=== PATIENT | female | born 1995 | race Caucasian/White ===

== ENCOUNTER 2022-02-13 10:57 | Emergency (ER) | payer OTHER ==
--- OUTSIDE RECORDS SUMMARY | 2022-02-13 11:01 | XMS REPORT | Continuity of Care Document ---
:1995 Author Organization [facility] t Address [address] [place] [address] Care Team Providers Name Role Phone PCP, PATIENT DOES NOT HAVE A Primary Care Physician UnavailCARLA Trotter Attending Clinician Unavailable La Nena Spencer RN Attending Clinician Unavailable Beto Ortiz MD Attending Clinician BETO ORTIZ Attending Clinician Unavailable Doctor Unassigned, [place] Attending Clinician Unavailable UNKNOWN, ATTENDING Attending Clinician Unavailable ROMERO GE Attending Clinician Unavailable Romero Ge MD Attending Clinician Lori Floyd Attending Clinician Carla Tripp PA-C Attending Clinician Payers Payer Name Policy Type Policy Number Effective Date Expiration Date [facility] [id number] 2017 PPO 00:00:00 Problems Condition Condition Condition Status Onset Resolution Last Treating Co mments Source Name Details Category Date Date Treatment Clinician Date High-risk High-risk Disease Active 2021-03 Uni vers 1-21 ity of in first in first 00:00: [place] trimester trimester 00 Medi bibi Branch Nausea and Nausea and Disease Active 2021-03 U nivers vomiting vomiting 1-21 ity of during during 00:00: [place] 00 Medi bibi prior to prior to Branch 22 weeks 22 weeks gestation gestation Chlamydia Chlamydia Disease Active 2017-03 Uni vers infection infection 0-18 ity of affecting affecting 00:00: Cassidy henry 00 Medi bibi in first in first Branch trimester trimester Allergies, Adverse Reactions, Alerts Allergy Allergy Status Severity Reaction(s) Onset Inactive Treating Comm ents Source Name Type Date Date Clinician NO KNOWN Drug Active Univers ALLERGIE Class ity of S [facility] Social History Social Habit Start Date Stop Date Quantity Comments Source ASSERTION 2021-12-21 University 00:00:00 [place] [facility] [place] History SDOH University o f Alcohol Frequency [place] [facility] ed[facility] History SDOH University o f Alcohol Std [place] [facility] Drinks Branch History SDNE University o f Alcohol Binge [place] [facility] al [place] History of Passive smoker University of tobacco use [facility] Exposure to 2022-01-15 2022-01-25 Not sure University SARS-CoV-2 00:00:00 11:03:00 [facility] (event) [place] Alcohol Comment 2022-01-25 2022-01-25 quit when found Univ ersity of 00:00:00 00:00:00 out was [facility] dical [place] Tobacco use and 2022-01-25 2022-01-25 Smokeless tobacco Un iversity of exposure 00:00:00 00:00:00 non-user [facility] Alcohol intake 2022-01-25 2022-01-25 Ex-drinker [facility] 00:00:00 00:00:00 (finding) [facility] Sex [birth year] Universit y of 00:00:00 00:00:00 [facility] Smoking Status Start Date Stop Date Source Never smoked tobacco [facility] Medications Ordered Filled Start Stop Current Ordering Indication Dosage Frequency Signature Comments Components Source Medication Medication Date Date Medication? Clinician (SIG) Name Name metroNIDAZO 2021-03- Yes [id number] 500mg Take 1 Univers LE (FLAGYL) 03-28 tablet by it y of 500 mg 00:00: 05:59 mouth in [place] tablet 00 :00 the Medical morning Branch and 1 tablet in the evening. Do all this for 7 days. metroNIDAZO 2021-03- Yes [id number] 500mg Take 1 Univers LE (FLAGYL) 03-28 tablet by it y of 500 mg 00:00: 05:59 mouth in [place] tablet 00 :00 the Medical morning Branch and 1 tablet in the evening. Do all this for 7 days. metroNIDAZO 2021-03- Yes [id number] 500mg Take 1 Univers LE (FLAGYL) 03-28 tablet by it y of 500 mg 00:00: 05:59 mouth in [place] tablet 00 :00 the Medical morning Branch and 1 tablet in the evening. Do all this for 7 days. levonorgest 2021-03- No 1{devic 1 Device Univers reL 03-27 e} by ity of (MIRENA) 20 13:37: 00:00 Intrauteri [place] mcg/24 47 :00 ne route Medical hours (5 once now. Branch yrs) 52 mg IUD levonorgest 2021-03- No 1{devic 1 Device Univers reL 03-27 e} by ity of (MIRENA) 20 13:37: 00:00 Intrauteri [place] mcg/24 47 :00 ne route Medical hours (5 once now. Branch yrs) 52 mg IUD PNV 2021-03 Yes Take by Univers no.95/rashel -21 mouth. ity of us 11:37: [place] fum/folic 59 Medical ac Branch ( ORAL) PNV 2021-03 Yes Take by Univers no.95/rashel 1-21 mouth. ity of 11:37: [place] fum/folic 59 Medical ac Branch ( ORAL) PNV 2021-03 Yes Take by Univers no.95/rashel 1-21 mouth. ity of us 11:37: [place] fum/folic 59 Medical ac Branch ( ORAL) PNV 2021-03 Yes Take by Univers no.95/rashel 1-21 mouth. ity of us 11:37: [place] fum/folic 59 Medical ac Branch ( ORAL) PNV 2021-03 Yes Take by Univers no.95/rashel 1-21 mouth. ity of us 11:37: [place] fum/folic 59 Medical ac Branch ( ORAL) PNV 2021-03 Yes Take by Univers no.95/rashel 1-21 mouth. ity of us 11:37: [place] fum/folic 59 Medical ac Branch ( ORAL) metoclopram 2021-03 Yes [id number] 10mg Take 1 Univers clint HCl 10 1-21 tablet by ity of mg tablet 00:00: mouth [place] 00 every 6 Medical (six) Branch hours as needed for Nausea and Vomiting (N/V). pyridoxine, 2021-03 Yes [id number] 25mg Take 1 Univers VITAMIN 1-21 tablet by ity of B-6, 00:00: mouth [place] (VITAMIN 00 every 6 Medical B-6) 25 mg (six) Branch tablet hours as needed for Nausea and Vomiting (N/V). doxylamine 2021-03 Yes [id number] 25mg Take 1 U nivers (UNISOM, 1-21 tablet by ity of DOXYLAMINE, [place] 25 mg 00 bedtime as Medica l tablet needed for Branch Nausea and Vomiting (N/V). metoclopram 2021-03 Yes [id number] 10mg Take 1 Univers clint HCl 10 1-21 tablet by ity of mg tablet 00:00: mouth [place] 00 every 6 Medical (six) Branch hours as needed for Nausea and Vomiting (N/V). pyridoxine, 2021-03 Yes [id number] 25mg Take 1 Univers VITAMIN 1-21 tablet by ity of B-6, 00:00: mouth [place] (VITAMIN 00 every 6 Medical B-6) 25 mg (six) Branch tablet hours as needed for Nausea and Vomiting (N/V). doxylamine 2021-03 Yes [id number] 25mg Take 1 U nivers (UNISOM, 1-21 tablet by ity of DOXYLAMINE, [place] 25 mg 00 bedtime as Medica l tablet needed for Branch Nausea and Vomiting (N/V). metoclopram 2021-03 Yes [id number] 10mg Take 1 Univers clint HCl 10 1-21 tablet by ity of mg tablet 00:00: mouth [place] 00 every 6 Medical (six) Branch hours as needed for Nausea and Vomiting (N/V). pyridoxine, 2021-03 Yes [id number] 25mg Take 1 Univers VITAMIN 1-21 tablet by ity of B-6, 00:00: mouth [place] (VITAMIN 00 every 6 Medical B-6) 25 mg (six) Branch tablet hours as needed for Nausea and Vomiting (N/V). doxylamine 2021-03 Yes [id number] 25mg Take 1 U nivers (UNISOM, 1-21 tablet by ity of DOXYLAMINE, [place] 25 mg 00 bedtime as Medica l tablet needed for Branch Nausea and Vomiting (N/V). metoclopram 2021-03 Yes [id number] 10mg Take 1 Univers clint HCl 10 1-21 tablet by ity of mg tablet 00:00: mouth [place] 00 every 6 Medical (six) Branch hours as needed for Nausea and Vomiting (N/V). pyridoxine, 2021-03 Yes [id number] 25mg Take 1 Univers VITAMIN 1-21 tablet by ity of B-6, 00:00: mouth [place] (VITAMIN 00 every 6 Medical B-6) 25 mg (six) Branch tablet hours as needed for Nausea and Vomiting (N/V). doxylamine 2021-03 Yes [id number] 25mg Take 1 U nivers (UNISOM, 1-21 tablet by ity of DOXYLAMINE, [place] 25 mg 00 bedtime as Medica l tablet needed for Branch Nausea and Vomiting (N/V). metoclopram 2021-03 Yes [id number] 10mg Take 1 Univers clint HCl 10 1-21 tablet by ity of mg tablet 00:00: mouth [place] 00 every 6 Medical (six) Branch hours as needed for Nausea and Vomiting (N/V). pyridoxine, 2021-03 Yes [id number] 25mg Take 1 Univers VITAMIN 1-21 tablet by ity of B-6, 00:00: mouth [place] (VITAMIN 00 every 6 Medical B-6) 25 mg (six) Branch tablet hours as needed for Nausea and Vomiting (N/V). doxylamine 2021-03 Yes [id number] 25mg Take 1 U nivers (UNISOM, 1-21 tablet by ity of DOXYLAMINE, [place] 25 mg 00 bedtime as Medica l tablet needed for Branch Nausea and Vomiting (N/V). metoclopram 2021-03 Yes [id number] 10mg Take 1 Univers clint HCl 10 1-21 tablet by ity of mg tablet 00:00: mouth [place] 00 every 6 Medical (six) Branch hours as needed for Nausea and Vomiting (N/V). pyridoxine, 2021-03 Yes [id number] 25mg Take 1 Univers VITAMIN 1-21 tablet by ity of B-6, 00:00: mouth [place] (VITAMIN 00 every 6 Medical B-6) 25 mg (six) Branch tablet hours as needed for Nausea and Vomiting (N/V). doxylamine 2021-03 Yes [id number] 25mg Take 1 U nivers (UNISOM, 1-21 tablet by ity of DOXYLAMINE, [place] 25 mg 00 bedtime as Medica l tablet needed for Branch Nausea and Vomiting (N/V). ondansetron Yes [id number] 4mg Take 1 Univers 4 mg 5-16 tablet by ity of disintegrat 00:00: mouth [place] ing tablet 00 every 8 Medica l (eight) Branch hours as needed for Nausea and Vomiting (N/V). bromphenira Yes [id number] 5mL Take 5 mL Univers mine-pseudo 5-16 by mouth 4 it y of ephedrine-D 00:00: (four[place] (BROMFED 00 times Medical DM) 2-30-10 daily as Bran ch mg/5 mL needed for syrup Congestion /Allergies . ondansetron 2021- No [id number] 4mg Take 1 Univers 4 mg 5-16 11-21 tablet by ity of disintegrat 00:00: 00:00 [place] tablet 00 :00 every 8 Medica l (eight) Branch hours as needed for Nausea and Vomiting (N/V). bromphenira 2021- No [id number] 5mL Take 5 mL Univers mine-pseudo 5-16 11-21 by mouth 4 i ty of ephedrine-D 00:00: 00:00 (four) [place] M (BROMFED 00 :00 times Medical DM) 2-30-10 daily as Bran ch mg/5 mL needed for syrup Congestion /Allergies . ondansetron 2021- No [id number] 4mg Take 1 Univers 4 mg 5-16 11-21 tablet by ity of disintegrat 00:00: 00:00 [place] tablet 00 :00 every 8 Medica l (eight) Branch hours as needed for Nausea and Vomiting (N/V). bromphenira 2021- No [id number] 5mL Take 5 mL Univers mine-pseudo 5-16 -21 by mouth 4 i ty of ephedrine-D 00:00: 00:00 (four) [place] M (BROMFED 00 :00 times Medical DM) 2-30-10 daily as Bran ch mg/5 mL needed for syrup Congestion /Allergies . metroNIDAZO Yes [id number] 500mg Take 1 Univers LE 500 mg 1-16 tablet by ity o f tablet 00:00: mouth [place] 00 every 12 Medical (twelve) Branch hours. metroNIDAZO Yes [id number] 500mg Take 1 Univers LE 500 mg 1-16 tablet by ity o f tablet 00:00: mouth [place] 00 every 12 Medical (twelve) Branch hours. metroNIDAZO 2021- No [id number] 500mg Take 1 Univers LE 500 mg 1-16 -21 tablet by ity of tablet 00:00: 00:00 mouth [place] 00 :00 every 12 Medical (twelve) Branch hours. metroNIDAZO 2021- No [id number] 500mg Take 1 Univers LE 500 mg 1-16 -21 tablet by ity of tablet 00:00: 00:00 mouth [place] 00 :00 every 12 Medical (twelve) Branch hours. fluconazole 2021- No [id number] 200mg Take 1 Univers 200 mg 1-16 -18 tablet by ity of tablet 00:00: 05:59 mouth [place] 00 :00 daily for Medical 1 day. Branch cephALEXin 0 Yes [id number] 500mg Take 1 Univers 500 mg 1-13 capsule by ity of capsule 00:00: mouth 2 [place] 00 (two) Medical times Branch daily. cephALEXin 2021-0 Yes [id number] 500mg Take 1 Univers 500 mg 1-13 capsule by ity of capsule 00:00: mouth 2 [place] 00 (two) Medical times Branch daily. cephALEXin 2021-0 Yes [id number] 500mg Take 1 Univers 500 mg 1-13 capsule by ity of capsule 00:00: mouth 2 [place] 00 (two) Medical times Branch daily. cephALEXin 2021-0 2021- No [id number] 500mg Take 1 Univers 500 mg 1-13 11-21 capsule by ity of capsule 00:00: 00:00 mouth 2 [place] 00 :00 (two) Medical times Branch daily. cephALEXin 2021- No [id number] 500mg Take 1 Univers 500 mg 03-19 capsule by ity of capsule 00:00: 00:00 mouth 2 [place] 00 :00 (two) Medical times Branch daily. levonorgest Yes 1{devic 1 Device Univers reL 1-06 e} by ity of (MIRENA) 20 10:43: Intrauteri [place] mcg/24 37 ne route Medical hours (5 once now. Branch yrs) 52 mg IUD levonorgest Yes 1{devic 1 Device Univers reL 1-06 e} by ity of (MIRENA) 20 10:43: Intrauteri [place] mcg/24 37 ne route Medical hours (5 once now. Branch yrs) 52 mg IUD levonorgest Yes 1{devic 1 Device Univers reL 1-06 e} by ity of (MIRENA) 20 10:43: Intrauteri [place] mcg/24 37 ne route Medical hours (5 once now. Branch yrs) 52 mg IUD levonorgest Yes 1{devic 1 Device Univers reL 1-06 e} by ity of (MIRENA) 20 10:43: Intrauteri [place] mcg/24 37 ne route Medical hours (5 once now. Branch yrs) 52 mg IUD levonorgest Yes 1{devic 1 Device Univers reL 1-06 e} by ity of (MIRENA) 20 10:43: Intrauteri [place] mcg/24 37 ne route Medical hours (5 once now. Branch yrs) 52 mg IUD levonorgest Yes 1{devic 1 Device Univers reL 1-06 e} by ity of (MIRENA) 20 10:43: Intrauteri [place] mcg/24 37 ne route Medical hours (5 once now. Branch yrs) 52 mg IUD metroNIDAZO 2021- No [id number] 500mg Take 1 Univers LE 500 mg 03-12 01-10 tablet by ity of tablet 00:00: 00:00 mouth [place] 00 :00 every 12 Medical (twelve) Branch hours. Nitrofurant 2021- No [id number] 100mg Take 1 Univers oin&Nit. 1-04 10 capsule by ity of Macrocryst 00:00: 00:00 mouth 2 [place] as (MACROBID) 00 :00 (two) Medical 100 mg times Branch capsule daily. Immunizations Ordered Filled Immunization Date Status Comments [facility] e Immunization Name Name Influenza Virus 2021-03-16 Completed Universit y of Vaccine Quad IM, 00:00:00 [place] Me dical Preserv and ABX Branch Free 6 MO-64 YRS Influenza Virus 2021-03-16 Completed Universit y of Vaccine Quad IM, 00:00:00 [place] Me dical Preserv and ABX Branch Free 6 MO-64 YRS Influenza Virus 2021-03-16 Completed Universit y of Vaccine Quad IM, 00:00:00 [place] Me dical Preserv and ABX Branch Free 6 MO-64 YRS Influenza Virus 2021-03-16 Completed Universit y of Vaccine Quad IM, 00:00:00 [place] Me dical Preserv and ABX Branch Free 6 MO-64 YRS Influenza Virus 2021-03-16 Completed Universit y of Vaccine Quad IM, 00:00:00 [place] Me dical Preserv and ABX Branch Free 6 MO-64 YRS Influenza Virus 2021-03-16 Completed Universit y of Vaccine Quad IM, 00:00:00 [place] Me dical Preserv and ABX Branch Free 6 MO-64 YRS Influenza Virus 2021-03-16 Completed Universit y of Vaccine Quad IM, 00:00:00 [place] Me dical Preserv and ABX Branch Free 6 MO-64 YRS Influenza Virus 2021-03-16 Completed Universit y of Vaccine Quad IM, 00:00:00 [place] Me dical Preserv and ABX Branch Free 6 MO-64 YRS Influenza Virus 2021-03-16 Completed Universit y of Vaccine Quad IM, 00:00:00 [place] Me dical Preserv and ABX Branch Free 6 MO-64 YRS Influenza Virus 2021-03-16 Completed Universit y of Vaccine Quad IM, 00:00:00 [place] Me dical Preserv and ABX Branch Free 6 MO-64 YRS Influenza Virus 2021-03-16 Completed Universit y of Vaccine Quad IM, 00:00:00 [place] Me dical Preserv and ABX Branch Free 6 MO-64 YRS Influenza Virus 2021-03-16 Completed Universit y of Vaccine Quad IM, 00:00:00 [facility] dical Preserv and ABX Branch Free 6 MO-64 YRS Influenza Virus 2020-03-12 Completed Universit y of Vaccine Quad .5 mL 00:00:00 [place] [facility] IM 6+ MO Branch Influenza Virus 2020-03-12 Completed Universit y of Vaccine Quad .5 mL 00:00:00 [place] [facility] IM 6+ MO Branch Influenza Virus 2020-03-12 Completed Universit y of Vaccine Quad .5 mL 00:00:00 [place] [facility] IM 6+ MO Branch Influenza Virus 2020-03-12 Completed Universit y of Vaccine Quad .5 mL 00:00:00 [facility] IM 6+ MO Branch Influenza Virus 2020-03-12 Completed Universit y of Vaccine Quad .5 mL 00:00:00 [facility] IM 6+ MO Branch Influenza Virus 2020-03-12 Completed Universit y of Vaccine Quad .5 mL 00:00:00 [facility] IM 6+ MO Branch Influenza Virus 2020-03-12 Completed Universit y of Vaccine Quad .5 mL 00:00:00 [facility] IM 6+ MO Branch Influenza Virus 2020-03-12 Completed Universit y of Vaccine Quad .5 mL 00:00:00 [facility] IM 6+ MO Branch Influenza Virus 2020-03-12 Completed Universit y of Vaccine Quad .5 mL 00:00:00 [facility] 6+ MO Branch Influenza Virus 2020-03-12 Completed Universit y of Vaccine Quad .5 mL 00:00:00 [facility] IM 6+ MO Branch Influenza Virus 2020-03-12 Completed Universit y of Vaccine Quad .5 mL 00:00:00 [facility] IM 6+ MO Branch Influenza Virus 2020-03-12 Completed Universit y of Vaccine Quad .5 mL 00:00:00 [facility] 6+ MO Branch TDAP 2018-04-27 Completed University of 00:00:00 [facility] TDAP 2018-04-27 Completed University of 00:00:00 [facility] TDAP 2018-04-27 Completed University of 00:00:00 [facility] TDAP 2018-04-27 Completed University of 00:00:00 [facility] TDAP 2018-04-27 Completed University of 00:00:00 [facility] TDAP 2018-04-27 Completed University of 00:00:00 [facility] TDAP 2018-04-27 Completed University of 00:00:00 [facility] Branch TDAP 2018-04-27 Completed University of 00:00:00 [facility] TDAP 2018-04-27 Completed University of 00:00:00 [place] [facility] TDAP 2018-04-27 Completed University of 00:00:00 [facility] TDAP 2018-04-27 Completed University of 00:00:00 [facility] TDAP 2018-04-27 Completed University of 00:00:00 [facility] Influenza Virus 2018-01-18 Completed Universit y of Vaccine Quad .5 mL 00:00:00 [place] [facility] IM 6+ MO Branch Influenza Virus 2018-01-18 Completed Universit y of Vaccine Quad .5 mL 00:00:00 [place] [facility] IM 6+ MO Branch Influenza Virus 2018-01-18 Completed Universit y of Vaccine Quad .5 mL 00:00:00 [place] [facility] 6+ MO Branch Influenza Virus 2018-01-18 Completed Universit y of Vaccine Quad .5 mL 00:00:00 [place] [facility] IM 6+ MO Branch Influenza Virus 2018-01-18 Completed Universit y of Vaccine Quad .5 mL 00:00:00 [place] [facility] IM 6+ MO Branch Influenza Virus 2018-01-18 Completed Universit y of Vaccine Quad .5 mL 00:00:00 [place] [facility] IM 6+ MO Branch Influenza Virus 2018-01-18 Completed Universit y of Vaccine Quad .5 mL 00:00:00 [place] [facility] IM 6+ MO Branch Influenza Virus 2018-01-18 Completed Universit y of Vaccine Quad .5 mL 00:00:00 [place] [facility] IM 6+ MO Branch Influenza Virus 2018-01-18 Completed Universit y of Vaccine Quad .5 mL 00:00:00 [place] [facility] IM 6+ MO Branch Influenza Virus 2018-01-18 Completed Universit y of Vaccine Quad .5 mL 00:00:00 [place] [facility] IM 6+ MO Branch Influenza Virus 2018-01-18 Completed Universit y of Vaccine Quad .5 mL 00:00:00 [place] [facility] IM 6+ MO Branch Influenza Virus 2018-01-18 Completed Universit y of Vaccine Quad .5 mL 00:00:00 [place] [facility] 6+ MO Branch Vital Signs Vital Name Observation Time Observation Value Comments Source Systolic blood 2022-01-25 17:36:00 103 mm[Hg] Univer sity of pressure [facility] Diastolic blood 2022-01-25 17:36:00 66 mm[Hg] Unive rsity of pressure [place] [facility] Heart rate 2022-01-25 17:36:00 76 /min Universi ty of [place] [facility] Body temperature 2022-01-25 17:36:00 37.06 Dia Univ ersity of [facility] Branch Body height 2022-01-25 17:36:00 177.8 cm Universi ty of [facility] Body weight 2022-01-25 17:36:00 81.012 kg Universi ty of [place] [facility] BMI 2022-01-25 17:36:00 25.63 kg/m2 Universi ty of [facility] Branch Systolic blood 2021-07-20 22:31:00 110 mm[Hg] Univer sity of pressure [facility] Branch Diastolic blood 2021-07-20 22:31:00 76 mm[Hg] Unive rsity of pressure [facility] Branch Heart rate 2021-07-20 22:31:00 109 /min Universi ty of [facility] Body temperature 2021-07-20 22:31:00 37.11 Dia Univ ersity of [facility] Branch Respiratory rate 2021-07-20 22:31:00 17 /min Univ ersity of [facility] Branch Body height 2021-07-20 22:31:00 177.8 cm Universi ty of [place] [facility] Body weight 2021-07-20 22:31:00 78.472 kg Universi ty of [place] [facility] BMI 2021-07-20 22:31:00 24.82 kg/m2 Universi ty of [facility] Branch Oxygen saturation in 2021-07-20 22:31:00 97 /min University of Arterial blood by [facility] Pulse oximetry Branch Systolic blood 2021-03-16 16:04:00 114 mm[Hg] Univer sity of pressure [facility] Branch Diastolic blood 2021-03-16 16:04:00 75 mm[Hg] Unive rsity of pressure [facility] Branch Heart rate 2021-03-16 16:04:00 80 /min Universi ty of [facility] Body temperature 2021-03-16 16:04:00 36.44 Dia Univ ersity of [facility] Respiratory rate 2021-03-16 16:04:00 18 /min Univ ersity of [facility] Branch Body height 2021-03-16 16:04:00 177.8 cm [facility] Body weight 2021-03-16 16:04:00 73.936 kg [facility] BMI 2021-03-16 16:04:00 23.39 kg/m2 [facility] Procedures Procedure Date / Time Performing Clinician Source Performed US OB TRANSVAGINAL 2022-01-25 20:42:06 Beto Ortiz [facility] URINE DRUG (IMMUNOASSAY) 2022-01-25 18:02:00 Beto Ortiz [facility] COMPREHENSIVE DRUG Medical [facility] SCREEN GC & CHLAMYDIA AMPLIFIED 2022-01-25 18:02:00 Beto Ortiz [facility] ASSAY [facility] GALV ONLY - VAGINAL 2022-01-25 18:02:00 Beto Ortiz [facility] PATHOGENS BY NUCLEIC Medical Bra [facility] ACID TESTING PAP SMEAR-LIQUID 2022-01-25 18:02:00 Beto Ortiz [facility] ULTRASOUND 2022-01-25 06:01:00 Doctor Unassigned, Gia [facility] POCT TEST 2022-01-25 00:00:00 Beto Ortiz [facility] POCT URINALYSIS W/O 2022-01-25 00:00:00 Beto Ortiz [facility] POCT MOLECULAR FLU 2021-07-20 22:33:00 Loir Aburto [facility] FLU VACC (), 2021-03-16 16:08:59 Carla Tripp [facility] 2-64 YRS, .5ML, IM, [facility] (FLUCELVAX) POCT TEST 2021-03-16 00:00:00 Carla Tripp [facility] POCT URINALYSIS W/O 2021-03-16 00:00:00 Carla Tripp [facility] Encounters Start End Encounter Admission Attending Care Care Encounter Source Date/Time Date/Time Type Type Clinicians Facility Department ID 2022-02-22 2022-02-22 [id number] Univers 10:30:00 10:30:00 CARLA ity of [facility] 2022-02-01 2022-02-01 Patient Johanna [facility] [id number] Univers 00:00:00 00:00:00 Secure Msg [place] Nena RADHA [id number] [facility] [id number] [id number] [place] dical NAL [address] [place] [address] 2022-02-01 2022-02-01 Telephone Beto Ortiz [facility] [id number] Univers 00:00:00 00:00:00 Bon GARCIA [id number] i ty of [place] [id number] [id number] [place] dical NAL [address] [place] [address] 2022-01-26 2022-01-26 Case Angel Beto [facility] [id number] Univers 00:00:00 00:00:00 Management Bon GARCIA [id number] ity of [place] [id number] [id number] [place] dical [address] 2022-01-25 2022-01-25 Outpatient R ANGEL BETO [facility] [id number] Univers 11:15:00 12:05:33 ity of [facility] 2022-01-25 2022-01-25 Initial OrtizOraliaen [facility] [id number] Univers 11:15:00 12:05:33 oBn GARCIA [id number] ity of Visit [place] [id number] [id number] [place] dical NAL [address] [place] [address] 2022-01-25 2022-01-25 Orders Doctor BENOIT [id number] Univers 00:00:00 00:00:00 Only Unassigned, COY [id number] ity of [place] [facility] [id number] [place] as [id number] [address] 2022-01-15 2022-01-15 Outpatient R SULTANA [facility] [id number] Univers 09:00:00 09:00:00 ATTENDING ity [facility] 2021-07-20 2021-07-20 Outpatient R LILIANA [facility] [id number] Univers 17:40:00 17:48:09 ROMERO ity [facility] 2021-07-20 2021-07-20 Urgent Romero Ge [facility] [id number] Univers 17:40:00 17:48:09 Care [facility] [id number] ity of [place] [id number] Kevin as ANTONIO?BLEA [phone] [address] OFFICE [facility] 2021-03-22 2021-03-22 [facility] [id number] Univers 00:00:00 00:00:00 Management [facility] [id number] [facility] [id number] Kevin as ANTONIO?BLEA [phone] [address] OFFICE [facility] 2021-03-19 2021-03-19 Telephone Beto Ortiz [facility] [id number] Univers 00:00:00 00:00:00 Bon GARCIA [id number] i ty [facility] [id number] [phone] [address] 2021-03-19 2021-03-19 [facility] [id number] Univers 00:00:00 00:00:00 Management Carla [place] [id number] it[id number] [phone] [address] 2021-03-18 2021-03-18 Telephone [facility] [id number] Univers 00:00:00 00:00:00 Carla GARCIA [id number] i ty [id number] [id number] [address] 2021-03-16 2021-03-16 Outpatient R ROBINA [facility] [id number] Univers 10:00:00 10:39:07 CARLA [facility] 2021-03-16 2021-03-16 [facility] [id number] Univers 10:00:00 10:39:07 Visit Carla GARCIA [id number] i ty of [id number] [phone] [address] 2021-03-16 2021-03-16 Outpatient R ROBINA [facility] [id number] Univers 10:00:00 10:39:07 [facility] 2021-03-16 2021-03-16 Orders Doctor LABOY [id number] Univers 00:00:00 00:00:00 Only Unassigned, COY [id number] [place] [facility] [id number] Kevin as [phone] [address] 2020-05-19 2020-05-19 Outpatient R BETO ORTIZ [facility] [id number] Univers 13:30:00 13:30:00 ity [facility] 2020-04-21 2020-04-21 Outpatient R BETO ORTIZ [facility] [id number] Univers 08:30[facility]00 [facility]-03-26 2020-03-26 [facility] 1.2.840.114 [id number] Univers 00:00:00 00:00:00 Carla Garcia [id number] [id number] [id number] [address] 2020-03-21 2020-03-21 Telephone [facility] 1.2.840.114 [id number] Univers 00:00:00 00:00:00 Carla Garcia [id number] i ty [id number] Profess[place] [phone] [place] dical [place]al [address] [place] [address] 2020-03-13 2020-03-13 Telephone [facility] 1.2.840.114 [id number] Univers 00:00:00 00:00:00 Carla Garcia [id number] [id number] [phone] [place] dical [place]al [address] [place] [address] 2020-03-12 2020-03-12 Office [facility] [id number] Univers 10:20:08 10:57:41 Visit Carla Garcia [id number] [place] ty [id number] [phone] [address] 2020-03-12 2020-03-12 [facility] [id number] Univers 10:30:00 10:30:00 CARLA ity of [facility] 2020-03-12 2020-03-12 Telephone [facility] 1.2.840.114 [id number] Univers 00:00:00 00:00:00 Carla Garcia [id number] i ty [id number] [phone] [place] dical nal [address] [place] [address] 2020-03-10 2020-03-10 Case [facility] [id number] Univers 00:00:00 00:00:00 Management Carla Garcia [id number] it[place] of [id number] [phone] [place] dical nal [address] [place] [address] 2020-03-10 2020-03-10 Telephone [facility] 1.2.840.114 [id number] Univers 00:00:00 00:00:00 Carla Garcia [id number] [place] ty [id number] [phone] [place] dical nal [address] [facility] 2020-03-05 2020-03-05 Office Robina [facility] [id number] Univers 14:47:35 15:34:52 Visit Carla Garcia [id number] i ty [facility] [id number] [place] miguelio [phone] [place] dical [address] 2020-03-05 2020-03-05 Outpatient R ROBINA [facility] [id number] Univers 14:30:00 14:30:00 CARLA [facility] 2020-03-05 2020-03-05 Orders Doctor BENOIT [id number] [id number] Univers 00:00:00 00:00:00 Only Unassigned, COY 350.1.13.10 ity [place] [facility] 4.2.7.2.686 Kevin as [phone] [address] 2019-12-04 2019-12-04 [facility] [id number] Univers 08:00:00 08:00:00 CARLA ascencio [facility] Results Test Description Test Time Test Comments Results Result Comments Source POCT TEST 2022-01-25 17:38:00 Test Item Value Reference Range Interpretation Comme nts POCT PREG (test code = 1605) Positive On board controls acceptable with C Line (test code = 3574) Yes POCT PREG LOT # (test code = 3575) POCT PREG TEST DATE (test code = 3576) [facility] [id number] 17:38:00 Test Item Value Reference Range Interpretation Comments POCT PH U (test code = 3254) n/a 5-8 POCT U LEUK EST (test code = n/a Negative - Negative 3263) POCT U NIT (test code = 3262) n/a Negative - Negative POCT U PROT (test code = 3259) Negative Negative - Negative POCT U GLU (test code = 3256) Normal Negative - Negative POCT U KETONE (test code = 3258) n/a Negative - Negative POCT U BLD (test code = 3257) n/a Negative - Negative [facility] [id number] 17:38:00 Test Item Value Reference Range Interpretation Comments POCT PREG (test code = 1605) Positive On board controls acceptable with C Yes Line (test code = 3574) POCT PREG LOT # (test code = 3575) POCT PREG TEST DATE (test code = 3576) [facility] URINALYSIS W/O SPECIFIC [id number] 17:38:00 Test Item Value Reference Range Interpretation Comments POCT PH U (test code = 3254) n/a 5-8 POCT U LEUK EST (test code = n/a Negative - Negative 3263) POCT U NIT (test code = 3262) n/a Negative - Negative POCT U PROT (test code = 3259) Negative Negative - Negative POCT U GLU (test code = 3256) Normal Negative - Negative POCT U KETONE (test code = 3258) n/a Negative - Negative POCT U BLD (test code = 3257) n/a Negative - Negative [facility] MOLECULAR [id number] 22:45:22 Test Item Value Reference Range Interpretation Comments POCT Molecular FluA (test code = Negative Negative 05487-4) POCT Molecular FluB (test code = Negative Negative 15696-6) Lab Interpretation (test code = Normal 03448-8) [facility] [id number] 16:10:00 Test Item Value Reference Range Interpretation Comments POCT PREG (test code = 1605) Negative On board controls acceptable with C Yes Line (test code = 3574) POCT PREG LOT # (test code = 3575) POCT PREG TEST DATE (test code = 3576) Lab Interpretation (test code = Normal 65843-3) [facility] URINALYSIS W/O SPECIFIC [id number] 16:10:00 Test Item Value Reference Range Interpretation Comments POCT PH U (test code = 3254) 6 mg/dl 5-8 POCT U LEUK EST (test code = neg Negative - Negative 3263) POCT U NIT (test code = 3262) neg Negative - Negative POCT U PROT (test code = 3259) neg Negative - Negative POCT U GLU (test code = 3256) neg Negative - Negative POCT U KETONE (test code = 3258) neg Negative - Negative POCT U BLD (test code = 3257) trace Negative - Negative Lab Interpretation (test code = Abnormal 29398-8) [facility]
[2022-02-13] MEDS ORDERED: PROMETHAZINE INJ 25 MG/ML AMP ONE (12:09)
[2022-02-13] MEDS ORDERED: NA CHLORIDE 0.9% 1,000 ML ONE (12:09)
[2022-02-13 13:06] LABS: Albumin 3.8 g/dL (3.4-5.0); Bilirubin Total 0.4 mg/dL (0.2-1.0); Protein, Total 7.4 g/dL (6.4-8.2)
--- NOTE | 2022-02-13 14:26 | ER ---
Nurse's Notes [facility] Name: Karen Gu Age: 26 yrs Sex: Female : 1995 Arrival Date: 02/13/2022 Time: 10:58 Bed 11 Private MD: Diagnosis: Mild hyperemesis gravidarum Presentation: 02/13 11:48 Chief complaint: Patient states: constipation, n/v is approx 10 weeks . iw Coronavirus screen: At this time, the client does not indicate any symptoms associated with coronavirus-19. Ebola Screen: Patient negative for fever greater than or equal to 101.5 degrees Fahrenheit, and additional compatible Ebola Virus Disease symptoms Patient denies exposure to infectious person. Patient denies travel to an Ebola-affected area in the 21 days before illness onset. No symptoms or risks identified at this time. Initial Sepsis Screen: Does the patient meet any 2 criteria? No. Patient's initial sepsis screen is negative. Does the patient have a suspected source of infection? No. Patient's initial sepsis screen is negative. Risk Assessment: Do you want to hurt yourself or someone else? Patient reports no desire to harm self or others. Onset of symptoms was February 13, 2022. 11:48 Method Of Arrival: Ambulatory iw 11:48 Acuity: DOLLY 3 iw Vital Signs: 11:48 BP 119 / 80; Pulse 75; Resp 16; Temp 98.5; Pulse Ox 100% on R/A; iw ED Course: 10:58 Patient arrived in ED. as 11:14 Yudith Davis FNP-C is [facility]. snw 11:14 Luis Angel Rausch MD is Attending Physician. snw 11:48 Sammi Baker, MIKA is Primary Nurse. iw 11:49 Triage completed. iw 11:49 Arm band placed on. iw 12:41 CMP Sent. zm 12:41 Inserted saline lock: 20 gauge in right antecubital area, using aseptic technique. zm Blood collected. Administered Medications: 12:58 Drug: NS 0.9% 1000 ml Route: IV; Rate: 1 bolus; Site: right antecubital; iw 12:58 Drug: Phenergan (promethazine) 25 mg Route: IM; Site: right ventrogluteal; iw Outcome: 14:25 Discharge ordered by . snw 14:53 Patient left the ED. iw Signatures: Yudith Davis, TRANSMISSION AND PROTECTION ENGINEER-C TRANSMISSION AND PROTECTION ENGINEER-Csnw Tara Luciano Irene, RN RN iw Etta Luciano
--- NOTE | 2022-02-13 14:26 | EDPHYS ---
Physician Documentation [facility] Name: Karen Gu Age: 26 yrs Sex: Female : 1995 Arrival Date: 02/13/2022 Time: 10:58 Bed 11 Private MD: ED Physician Luis Angel Rausch HPI: 02/13 11:48 This 26 yrs old Female presents to ER via Unassigned with complaints of Vomiting - 10 snw wks preg. 11:48 The patient presents to the emergency department with nausea, vomiting. Onset: The snw symptoms/episode began/occurred with . Possible causes: . The symptoms are aggravated by food . Associated signs and symptoms: Pertinent positives: abd cramping, Pertinent negatives: fever, GI bleeding, hematuria, vaginal discharge, vaginal bleeding. Severity of symptoms: At their worst the symptoms were moderate. The patient has experienced a previous episode, last . The patient has been recently seen by a physician: with similar presenting complaints, Seeing Dr. Gr (OB), taking zofran for hyperemesis but is constipated second to zofran. ROS: 11:47 Eyes: Negative for injury, pain, redness, and discharge, ENT: Negative for injury, snw pain, and discharge, Neck: Negative for injury, pain, and swelling, Cardiovascular: Negative for chest pain, palpitations, and edema, Respiratory: Negative for shortness of breath, cough, wheezing, and pleuritic chest pain. 11:47 Back: Negative for injury and pain, : Negative for injury, bleeding, discharge, and swelling, MS/Extremity: Negative for injury and deformity, Skin: Negative for injury, rash, and discoloration, Neuro: Negative for headache, weakness, numbness, tingling, and seizure. 11:47 Constitutional: Positive for malaise, poor PO intake. 11:47 Abdomen/GI: Positive for nausea and vomiting, abdominal cramps, hx of hyperemesis, taking Zofran. Exam: 11:46 Constitutional: This is a well developed, well nourished patient who is awake, alert, snw and in no acute distress. Head/Face: Normocephalic, atraumatic. Eyes: Pupils equal round and reactive to light, extra-ocular motions intact. Lids and lashes normal. Conjunctiva and sclera are non-icteric and not injected. Cornea within normal limits. Periorbital areas with no swelling, redness, or edema. ENT: Nares patent. No nasal discharge, no septal abnormalities noted. Tympanic membranes are normal and external auditory canals are clear. Oropharynx with no redness, swelling, or masses, exudates, or evidence of obstruction, uvula midline. Mucous membranes moist. Neck: Trachea midline, no thyromegaly or masses palpated, and no cervical lymphadenopathy. Supple, full range of motion without nuchal rigidity, or vertebral point tenderness. No Meningismus. Chest/axilla: Normal chest wall appearance and motion. Nontender with no deformity. No lesions are appreciated. Cardiovascular: Regular rate and rhythm with a normal S1 and S2. No gallops, murmurs, or rubs. Normal PMI, no JVD. No pulse deficits. Respiratory: Lungs have equal breath sounds bilaterally, clear to auscultation and percussion. No rales, rhonchi or wheezes noted. No increased work of breathing, no retractions or nasal flaring. Abdomen/GI: Soft, non-tender, with normal bowel sounds. No distension or tympany. No guarding or rebound. +cramping, soreness Back: No spinal tenderness. No costovertebral tenderness. Full range of motion. Skin: Warm, dry with normal turgor. Normal color with no rashes, no lesions, and no evidence of cellulitis. MS/ Extremity: Pulses equal, no cyanosis. Neurovascular intact. Full, normal range of motion. Neuro: Awake and alert, GCS 15, oriented to person, place, time, and situation. Cranial nerves II-XII grossly intact. Motor strength 5/5 in all extremities. Sensory grossly intact. Cerebellar exam normal. Normal gait. Psych: Awake, alert, with orientation to person, place and time. Behavior, mood, and affect are within normal limits. Vital Signs: 11:48 BP 119 / 80; Pulse 75; Resp 16; Temp 98.5; Pulse Ox 100% on R/A; iw MDM: 11:14 Patient medically screened. snw 14:28 Data reviewed: vital signs, nurses notes. Data interpreted: Pulse oximetry: on room air snw is 100 %. Interpretation: normal. Counseling: I had a detailed discussion with the patient and/or guardian regarding: the historical points, exam findings, and any diagnostic results supporting the discharge/admit diagnosis, lab results, the need for outpatient follow up, to return to the emergency department if symptoms worsen or persist or if there are any questions or concerns that arise at home. Response to treatment: the patient's symptoms have markedly improved after treatment. 02/13 11:32 Order name: CMP; Complete Time: 13:09 snw 02/13 11:52 Order name: FHT's; Complete Time: 12:28 snw Administered Medications: 12:58 Drug: NS 0.9% 1000 ml Route: IV; Rate: 1 bolus; Site: right antecubital; iw 12:58 Drug: Phenergan (promethazine) 25 mg Route: IM; Site: right ventrogluteal; iw Disposition: 17:30 Co-signature as Attending Physician, Luis Angel Rausch MD I agree with the assessment and rt plan of care. Disposition Summary: 02/13/22 14:25 Discharge Ordered Location: Home snw Condition: Stable snw Diagnosis - Mild hyperemesis gravidarum snw Followup: snw - With: Emergency Department - When: As needed - Reason: Worsening of condition Followup: snw - With: Private Physician - When: 2 - 3 days - Reason: Recheck today's complaints, Continuance of care, Re-evaluation by your physician Discharge Instructions: - Discharge Summary Sheet snw - Hyperemesis Gravidarum snw - Nausea and Vomiting, Adult snw Forms: - Medication Reconciliation Form snw - Thank You Letter snw - Antibiotic Education snw - Prescription Opioid Use snw - Work release form eb Prescriptions: - promethazine 25 mg Rectal suppository - insert 1 suppository by RECTAL route every 6 hours; 12 suppository; Refills: 0, snw Product Selection Permitted - Folic Acid 1 mg Oral Tablet - take 1 tablet by ORAL route once daily; 30 tablet; Refills: 0, Product snw Selection Permitted Signatures: Dispatcher [employer] Yudith Purdy FNP-C FNP-[place] Sammi Baker, MIKA RN iw Luis Angel Rausch MD MD rt
[2022-02-13 21:07] VITALS: BP 119/80; TEMP 98.5; O2SAT 100
== END 2022-02-13 14:53 | disposition home or self-care (01) ==
LOC: ER 10:57
DX: O21.0 Mild hyperemesis gravidarum (principal); Z3A.10 10 weeks gestation of pregnancy
CPT/HCPCS: 36415; 80053; 96372; 99283; J2550; J7030